=== PATIENT | male | born 1990 | race Caucasian/White ===

== ENCOUNTER 2016-10-31 01:43 | Day surgery (SDC) | payer OTHER ==
[~2016-10-31 01:43] MED LIST: ALBU8.5H2 INHALATION; MULT1CAP33 PO; OMEP40CA36 PO
[2016-10-31] MEDS ORDERED: Lactated Ringer's 1,000 ML IV ONE (06:00)
--- NOTE | 2016-10-31 07:01 | PCM.HPANE ---
Patient Data Surgeon Admitting Provider: Attending Provider:Ellie Lugo MD Primary Care Physician:Fabi Other Provider:Werner Perry Anesthesia Reason for Visit Blood In Stool Ht/WT & BMI Body Mass Index Allergies Coded Allergies: No Known Allergies (Verified Allergy, Mild, 10/30/16) Past Anesthesia History Anesthesia History: Denies:: Abnormal Airway, Anesthesia Reactions, Difficult Intubation, Fam Anesthesia Reaction, Fam Malignant Hypertherm, Malignant Hyperthermia Diabetes History Hx Diabetes?: No MRSA MRSA: No Medications Reported Medications Omeprazole 40 Mg Capsule.dr40 Mg PO DAILY Ref 0 10/30/16 Albuterol HFA (Proair HFA)8.5 Gm Hfa.aer.ad2 Puffs INHALATION Q4H #1 INHALER 10/30/16 Multivitamin (Multivitamins)1 Each Capsule1 Each PO 09/19/16 History HEENT History: Denies:: Abnormal Airway Difficult Intubation Hearing Problem Hx of Heart Problems?: No Hx of Respiratory Problem?: No Respiratory History: Positive for:: Pneumonia (LAST EPISODE 5-6 YEARS AGO) Neurological History: Denies:: CVA Gastrointestinal History: Positive for:: Gastroesphageal Reflux Hx Surgeries?: Yes (HAND) Hx Diabetes: No Hx Alcohol Use: No Stop/Bang Risk Assessment Category Category 1A: Patient has history of documented sleep apnea, and HAS NOT received any narcotic, sedative or anesthesia administration during this stay. Category 1B: Patient has history of documented sleep apnea, and HAS received any narcotic , sedative or anesthesia administration during this stay Category 2: Patient has SUSPECTED Obstructive Sleep Apnea, and HAS received any narcotic , sedative or anesthesia administration during this stay. Category 3: Patient has SUSPECTED Obstructive Sleep Apnea and HAS NOT received narcotic, sedative or anesthesia administration during this stay. Category 4: Outpatient in Procedural Areas with known sleep apnea or who screen positive for High Risk via the STOP/BANG questionnaire. Plan Impression nO SHOW Aurelio Thompson MD Oct 31, 2016 07:01 Aurelio Thompson MD Oct 31, 2016 07:01
== END 2016-10-31 23:59 | disposition home or self-care (01) ==
LOC: END 01:43
PROVIDERS: ATTEND Internal Medicine Gastroenterology